=== PATIENT | male | born 1995 | race Caucasian/White ===

== ENCOUNTER 2016-06-09 16:25 | Emergency (ER) | payer OTHER ==
[~2016-06-09] VITALS: Ht 162.6 cm; Wt 77.0 kg
[~2016-06-09 16:25] MED LIST: CEPH500C3 PO
[2016-06-09 16:26] VITALS: BP 141/97; PULSE 86; RESP 15; TEMP 97.8; O2SAT 99
[2016-06-09 16:42] VITALS: BP 140/88; PULSE 76; RESP 16; O2SAT 97
[2016-06-09 17:19] LABS: BASOPHIL % 0.4 % (0.0-2.0); EOSINOPHIL # 0.3 TH/MM3 (0-0.4); EOSINOPHIL % 3.7 % (0.0-4.0); HEMATOCRIT 43.7 % (39.0-51.0); HEMO FLAGS DIFF FINAL; MEAN CELL VOLUME 83.3 FL (80.0-100.0); MEAN CORPUSCULAR HEMOGLOBIN 28.9 PG (27.0-34.0); MEAN CORPUSCULAR HGB CONC 34.7 % (32.0-36.0); MONO % 6.7 % (0.0-8.0); NEUT % 51.2 % (16.0-70.0); PLATELET COUNT 226 TH/MM3 (150-450); RED BLOOD COUNT 5.24 MIL/MM3 (4.50-5.90); RED CELL DISTRIBUTION WIDTH 12.9 % (11.6-17.2); WHITE BLOOD COUNT 7.9 TH/MM3 (4.0-11.0)
[2016-06-09 17:24] LABS: BLOOD, URINE NEG (NEG); COMMENT (UR) CULT NOT INDICATED; CULTURE IF INDICATED CULT NOT INDICATED; GLUCOSE,URINE NEG (NEG); KETONE, URINE NEG (NEG); MUCUS URINE FEW /lpf (OCC); NITRITE,URINE NEG (NEG); URINE COLOR YELLOW (YELLW/STRAW)
[2016-06-09 17:51] LABS: ANION GAP 11 MEQ/L (5-15); AST (GOT) 19 U/L (15-39); BICARBONATE 25.4 MEQ/L (21.0-32.0); BLOOD UREA NITROGEN 11 MG/DL (7-18); CHLORIDE 104 MEQ/L (98-107); GLOMERULAR FILTRATION RATE 85 ML/MIN (>89); POTASSIUM 3.2 MEQ/L (3.5-5.1); SODIUM (NA) 140 MEQ/L (136-145)
[2016-06-09 17:54] LABS: ALKALINE PHOSPHATASE 97 U/L (45-117); ALT (GPT) 32 U/L (9-52); TOTAL BILIRUBIN ADULT 0.5 MG/DL (0.2-1.0)
[2016-06-09] MEDS ORDERED: AZITHROMYCIN PWD FOR SUSP 1 GM PACKET PO ONE (18:45)
[2016-06-09] MEDS ORDERED: cefTRIAXone 250 MG VIAL IM ONE (18:45)
[2016-06-09] MEDS ORDERED: LIDOCAINE HCL 1% 50 ML VIAL IM ONE (18:45)
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
[2016-06-09 19:25] LABS: CHLAMYDIA PCR NOT DETECTED (NOT DETECT); NEISSERIA PCR NOT DETECTED (NOT DETECT)
== END 2016-06-09 19:44 | disposition home or self-care (01) ==
LOC: NEPD 16:25
DX: R30.0 Dysuria (principal)
CPT/HCPCS: 80053; 81001; 85025; 87491; 87591; 96372; 99284; J0696

== ENCOUNTER 2016-08-02 15:59 | Emergency (ER) | payer OTHER ==
[~2016-08-02] VITALS: Ht 160 cm; Wt 72.7 kg
[2016-08-02 16:00] VITALS: BP 144/88; PULSE 201; PULSE 72; RESP 22; TEMP 98.8; O2SAT 98
[2016-08-02 16:44] VITALS: PULSE 64; RESP 20; O2SAT 98
[2016-08-02 17:19] LABS: AUTOMATED NEUTROPHIL # 4.2 TH/MM3 (1.8-7.7); BASOPHIL % 0.6 % (0.0-2.0); EOSINOPHIL # 0.4 TH/MM3 (0-0.4); EOSINOPHIL % 5.1 % (0.0-4.0); HEMO FLAGS DIFF FINAL; LYMPH % 34.1 % (9.0-44.0); LYMPHOCYTE # 2.6 TH/MM3 (1.0-4.8); MEAN CELL VOLUME 83.1 FL (80.0-100.0); MEAN CORPUSCULAR HEMOGLOBIN 28.7 PG (27.0-34.0); MEAN CORPUSCULAR HGB CONC 34.5 % (32.0-36.0); MONO % 6.4 % (0.0-8.0); NEUT % 53.8 % (16.0-70.0); PLATELET COUNT 241 TH/MM3 (150-450); RED BLOOD COUNT 5.29 MIL/MM3 (4.50-5.90); RED CELL DISTRIBUTION WIDTH 13.3 % (11.6-17.2); WHITE BLOOD COUNT 7.8 TH/MM3 (4.0-11.0)
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
[2016-08-02 17:34] LABS: ALT (GPT) 64 U/L (9-52); ANION GAP 6 MEQ/L (5-15); AST (GOT) 36 U/L (15-39); BICARBONATE 26.6 MEQ/L (21.0-32.0); BLOOD UREA NITROGEN 10 MG/DL (7-18); CHLORIDE 107 MEQ/L (98-107); GLOMERULAR FILTRATION RATE 105 ML/MIN (>89); POTASSIUM 3.9 MEQ/L (3.5-5.1); SODIUM (NA) 140 MEQ/L (136-145)
[2016-08-02 17:36] LABS: ALKALINE PHOSPHATASE 105 U/L (45-117); TOTAL BILIRUBIN ADULT 0.3 MG/DL (0.2-1.0)
[2016-08-02 17:54] VITALS: BP 138/72; PULSE 82; RESP 16; O2SAT 98
[2016-08-02 20:02] VITALS: BP 138/82; PULSE 68; RESP 18; O2SAT 100
[2016-08-02 20:15] LABS: AMPHETAMINE, URINE NEG (NEG); BARBITURATES, URINE NEG (NEG); COCAINE, URINE NEG (NEG)
[2016-08-02 22:00] VITALS: BP 128/76; PULSE 94; RESP 17; O2SAT 100
[2016-08-03 02:00] VITALS: BP 102/59; PULSE 52; RESP 17; O2SAT 98
[2016-08-03] MEDS ORDERED: PROZ20CA11 PO ×2 (02:32→11:11)
[2016-08-03 06:00] VITALS: BP 111/66; PULSE 59; RESP 18; O2SAT 100
[2016-08-03 10:05] VITALS: BP 115/56; PULSE 73; RESP 18
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
== END 2016-08-03 14:44 | disposition home or self-care (01) ==
LOC: NEPD 15:59 → NEPJ 08-03 14:44
DX: F43.21 Adjustment disorder with depressed mood (principal); F32.9 Major depressive disorder, single episode, unspecified; Z72.0 Tobacco use
CPT/HCPCS: 80053; 80307; 85025; 99283

== ENCOUNTER 2016-08-21 18:51 | Emergency (ER) | payer OTHER ==
[~2016-08-21] VITALS: Ht 162.6 cm; Wt 72.0 kg
[~2016-08-21 18:51] MED LIST changes: -CEPH500C3 PO; +PROZ20CA11 PO
[2016-08-21 18:52] VITALS: BP 154/80; PULSE 78; RESP 15; TEMP 98.2; O2SAT 98
--- NOTE | 2016-08-21 19:52 | PD ---
Physical Exam Date Seen by Provider: Aug 21, 2016 Time Seen by Provider: 19:50 Narrative 20 yo male here for evaluation of rash after starting new meds. Taking Prozac. Was BA recently and started on new med. Has had rash since. Not painful. Itchy. No recent travel. No allergies. Vitals are stable in triage. Awaiting Bed placement. Data Data Last Documented VS Vital Signs Date Time Temp Pulse Resp B/P Pulse Ox O2 Delivery O2 Flow Rate FiO2 08/21/16 18:52 98.2 78 15 154/80 98 MDM Medical Record Reviewed: Yes Supervised Visit with JAYDE: No Kilo León Aug 21, 2016 19:52
[2016-08-21] MEDS ORDERED: TRIA.1%T TOPICAL (20:14)
[2016-08-21] MEDS ORDERED: VIST50CA PO (20:14)
[2016-08-21] MEDS ORDERED: DEXAMETHASONE SOD PHOS 20 MG/5 ML VIAL IM ONE (20:15)
[2016-08-21] MEDS ORDERED: diphenhydrAMINE HCL 50 MG/ML VIAL IM ONE (20:15)
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
[2016-08-21 20:40] VITALS: BP 134/78
== END 2016-08-21 20:48 | disposition home or self-care (01) ==
LOC: NEPK 18:51
DX: L25.9 Unspecified contact dermatitis, unspecified cause (principal)
CPT/HCPCS: 96372; 99284; J1100; J1200